=== PATIENT | male | born 2000 | race Caucasian/White ===

== ENCOUNTER 2024-07-03 18:57 | Emergency (ER) | payer OTHER, SELFPAY ==
[2024-07-03 19:04] VITALS: BP 169/88
--- NOTE | 2024-07-03 19:52 | ED.GENMED ---
History of Present Illness
General
Chief Complaint: Musculo-Skeletal Complaint
Source: patient
Exam Limitations: none
Time Seen by Provider: 07/03/24 19:43
History of Present Illness
History of Present Illness:
Patient landed funny on his left foot 1 week ago. Complaining of ongoing foot pain. No other complaint or injury able to bear weight
Review of Systems
Review of Systems
All Other Systems: Not applicable
Phy Exam
Physical Exam
Physical Exam:
General: Nontoxic appearing in no distress
Skin: Warm and dry, no rash
Neuro: Alert, nontoxic, grossly nonfocal
Psychiatric: Good eye contact and appropriate
Musculoskeletal: No obvious swelling or deformity to the left lower leg or foot. Knee is stable. Calf tibia-fibula normal. Achilles intact. No medial or lateral malleolus tenderness or swelling. No ankle deformity or laxity. Mild tenderness
over the dorsal mid to lateral foot. However no fifth metatarsal tenderness. Motor or sensory neurovascular intact.
Course
Orders/Labs/Results
Orders:
Orders
07/03/24 19:05
CR Foot - Left Min 3 Views Urgent
Comment:
Reason For Exam: injury
07/03/24 19:55
boot [Ortho Boot Left- Treatment] ONCE
Short or tall?: Short
Vital Signs
Initial and Last Documented VS:
Initial Vital Signs
Temp Pulse Resp BP Pulse Ox
98.7 F 98 20 169/88 99
07/03/24 19:04 07/03/24 19:04 07/03/24 19:04 07/03/24 19:04 07/03/24 19:04
Last Documented Vital Signs
Temp Pulse Resp BP Pulse Ox
98.7 F 98 20 169/88 99
07/03/24 19:04 07/03/24 19:04 07/03/24 19:04 07/03/24 19:04 07/03/24 19:04
MDM/Problems Addressed
Differential Diagnosis Includes:
Clinically suspect ligamentous injury to the left foot. X-ray negative. Cast boot and orthopedic follow-up
*Radiology
Radiology exam reviewed: preliminary read by ED provider
*Pulse Oximetry
Patient hypoxic: no
*Critical Care Note
Total Time (30-74mins, 75-104mins- exclusive of procedures): Not Applicable
ED Attending Note
-
Portions of this chart may have been created with voice recognition software.� Occasional wrong word or��sound alike� substitutions may have occurred due to the inherent limitations of voice recognition software.
Discharge Plan
Departure
Patient Disposition: Home (Routine Discharge)
Date of Disposition: 07/03/24
Time of Disposition: 19:53
Patient with high blood pressure during this ER visit?: Yes
Discharge Problem:
Ligamentous injury left foot
Instructions: Foot sprain - ED discharge instructions, BLOOD PRESSURE
Referrals:
Ronal Sorenson MD [Active] - Follow up in 2-3 days
Activity Restrictions/Additional Instructions:
Use cast boot until seen by orthopedics
Elevate and rest foot when possible
Return with increasing pain swelling numbness tingling weakness or any other concerning symptoms
Interventions
Interventions:
*Risk Screen - Suicide Last Done: 07/03/24 19:23
*General Assessment Last Done: 07/03/24 19:04
*Nursing Disposition Last Done: 07/03/24 20:18
ED-Musculoskeletal Assessment Last Done: 07/03/24 20:06
Discharge Date and Time
Discharge Date/Time: 07/03/24 20:18
Print Language: MALAY
== END 2024-07-03 20:18 | disposition home or self-care (01) ==
LOC: EMR 18:57
PROVIDERS: EMERGENCY PHYSICIAN Emergency Medicine
DX: S99.922A Unspecified injury of left foot, initial encounter (principal); X58.XXXA Exposure to other specified factors, initial encounter
CPT/HCPCS: 99283; 73630